=== PATIENT | female | born 1945 | race American Indian/Alaskan Native ===

== ENCOUNTER 2016-04-21 16:23 | Emergency (ER) | payer MEDICARE | END 2016-04-21 16:30 | disposition left against medical advice (07) | LOC: ED 16:23 | DX: M54.2 Cervicalgia (principal); M54.9 Dorsalgia, unspecified; Z53.21 Procedure and treatment not carried out due to patient leaving prior to being seen by health care provider ==

== ENCOUNTER 2016-07-26 08:18 | Emergency (ER) | payer MEDICARE ==
[2016-07-26] MEDS ORDERED: NORCO 5/325 ONE (08:30)
[2016-07-26] MEDS ORDERED: NORCO 5/325 PO ONE (08:36)
[2016-07-26 09:55] LABS: Bilirubin,Urine NEG (Negative); Blood,Urine NEG (Negative); Ketones,Urine NEG (Negative); Leukocyte Esterase,Urine NEG (Negative); Mucus,Urine FEW /HPF; Nitrite,Urine NEG (Negative); Protein,Urine <15 mg/dL mg/dL (Negative); Urobilinogen,Urine < 2.0 mg/dL (<2.0)
[2016-07-26] MEDS ORDERED: ZOFRAN ODT PO ONE (11:20)
[2016-07-26] MEDS ORDERED: TORADOL IM ONE (11:20)
[2016-07-26] MEDS ORDERED: DILAUDID IM ONE (11:20)
--- NOTE | 2016-07-26 11:23 | Emergency Department Report ---
<MARY LUNA A - Last Filed: 07/26/16 12:42> ED Back Pain/Injury HPI - General Chief Complaint: Back Pain/Injury Stated Complaint: RIGHT SIDED PAIN,BACK PAIN Time Seen by Provider: 07/26/16 11:00 Source: patient, family Limitations: No Limitations - History of Present Illness Initial Comments: Patient here complaining or right sided back pain since Tuesday. Patient said pain started after visiting his sister and going up and down stairs a few day. She has a history of arthritis in his spine. Patient states her body is sore all over. Patient states pain increases with movement and walking. She denies any urinary burning frequency or urgency. Denies any abdominal pain. Denies any shortness of breath, chest pain or nausea vomiting. Patient denies any falling or any injury to her back. She was seen by her primary care doctor placed her on hydrocortisone 10 and Flexeril and she said is not helping. Denies any fever or chills. Denies any numbness or tingling to extremities. MD Complaint: back pain Onset/Timin Similar Symptoms Previously: Yes Place: home Radiation: none Severity: severe Severity scale (0 -10): 10 Quality: aching Consistency: constant Improves With: immobilization Worsens With: movement, walking Context: bending, other (increased physical activity) Associated Symptoms: denies: confusion, weakness, chest pain, numbness, difficulty walking, cough, difficulty urinating, diaphoresis, incontinence, fever/chills, constipation, headaches, abdominal pain, loss of appetite, malaise , nausea/vomiting, rash, seizure, shortness of breath, syncope Treatments Prior to Arrival: prescription analgesics - Related Data Home Medications Medication Instructions Recorded Confirmed Last Taken Amlodipine Besylate [Amlodipine 10 mg PO DAILY 05/30/13 07/26/16 07/26/16 Besylate] 10 mg Brimonidine Tartrate [Alphagan P 1 drop OU BID 05/30/13 07/26/16 07/25/16 0.1%] Hydrochlorothiazide [HCTZ] 25 mg PO DAILY 05/30/13 07/26/16 07/26/16 Metoprolol Tartrate [Metoprolol 100 mg PO QDAY 05/30/13 07/26/16 07/26/16 Tartrate] Timolol Maleate [Timolol Maleate 1 drop OU BID 05/30/13 07/26/16 07/25/16 0.25%] Aspirin [Adult Low Dose Aspirin EC] 81 mg PO QDAY 07/26/16 07/26/16 07/25/16 Esomeprazole Magnesium [NexIUM] 40 mg PO QDAY 07/26/16 07/26/16 07/25/16 Fish Oil 1 cap PO QDAY 07/26/16 07/26/16 07/25/16 Flaxseed Oil [Flax Seed Oil] 1 cap PO QDAY 07/26/16 07/26/16 07/25/16 Ibuprofen [Motrin 800 MG tab] 800 mg PO TID PRN 07/26/16 07/26/16 07/25/16 Latanoprost 0.005% [Xalatan 0.005%] 1 drop OS QHS 07/26/16 07/26/16 07/25/16 Rosuvastatin (Nf) [Crestor] 5 mg PO QDAY 07/26/16 07/26/16 07/25/16 Allergies Allergy/AdvReac Type Severity Reaction Status Date / Time No Known Allergies Allergy Unverified 05/30/13 09:05 ED Review of Systems ROS: Stated complaint: RIGHT SIDED PAIN,BACK PAIN Other details as noted in HPI Comment: All other systems reviewed and negative Constitutional: denies: chills, fever Respiratory: no symptoms reported Cardiovascular: denies: chest pain, palpitations, edema, syncope Gastrointestinal: other. denies: abdominal pain, nausea, vomiting, constipation , hematemesis Genitourinary: other. denies: urgency, dysuria, frequency, hematuria Musculoskeletal: back pain, other. denies: arthralgia, myalgia Skin: other Neurological: denies: vertigo, headache, weakness, numbness, paresthesias, confusion, abnormal gait Psychiatric: other. denies: anxiety, depression ED Past Medical Hx - Past Medical History Previous Medical History?: Yes Hx Hypertension: Yes Hx Deep Vein Thrombosis: No Additional medical history: reflux. scolosis - Surgical History Past Surgical History?: Yes Hx Pacemaker: No Hx Internal Defibrillator: No Additional Surgical History: hysterectomy. knot removed from left intestine - Family History Family history: diabetes, hypertension - Social History Smoking Status: Never Smoker Substance Use Type: None - Medications Home Medications: Home Medications Medication Instructions Recorded Confirmed Last Taken Type Amlodipine Besylate [Amlodipine 10 mg PO DAILY 05/30/13 07/26/16 07/26/16 History Besylate] 10 mg Brimonidine Tartrate [Alphagan P 1 drop OU BID 05/30/13 07/26/16 07/25/16 History 0.1%] Hydrochlorothiazide [HCTZ] 25 mg PO DAILY 05/30/13 07/26/16 07/26/16 History Metoprolol Tartrate [Metoprolol 100 mg PO QDAY 05/30/13 07/26/16 07/26/16 History Tartrate] Timolol Maleate [Timolol Maleate 1 drop OU BID 05/30/13 07/26/16 07/25/16 History 0.25%] Aspirin [Adult Low Dose Aspirin EC] 81 mg PO QDAY 07/26/16 07/26/16 07/25/16 History Esomeprazole Magnesium [NexIUM] 40 mg PO QDAY 07/26/16 07/26/16 07/25/16 History Fish Oil 1 cap PO QDAY 07/26/16 07/26/16 07/25/16 History Flaxseed Oil [Flax Seed Oil] 1 cap PO QDAY 07/26/16 07/26/16 07/25/16 History Ibuprofen [Motrin 800 MG tab] 800 mg PO TID PRN 07/26/16 07/26/16 07/25/16 History Latanoprost 0.005% [Xalatan 0.005%] 1 drop OS QHS 07/26/16 07/26/16 07/25/16 History Rosuvastatin (Nf) [Crestor] 5 mg PO QDAY 07/26/16 07/26/16 07/25/16 History ED Physical Exam - General Limitations: No Limitations General appearance: alert, in no apparent distress - Head Head exam: Present: atraumatic, normocephalic, normal inspection - Eye Eye exam: Present: normal appearance, PERRL, EOMI. Absent: periorbital swelling , periorbital tenderness Pupils: Present: normal accommodation - Neck Neck exam: Present: normal inspection, full ROM. Absent: tenderness, meningismus, lymphadenopathy - Respiratory Respiratory exam: Present: normal lung sounds bilaterally. Absent: respiratory distress, chest wall tenderness - Cardiovascular Cardiovascular Exam: Present: regular rate, normal rhythm, normal heart sounds - GI/Abdominal GI/Abdominal exam: Present: soft, normal bowel sounds. Absent: distended, tenderness, guarding, rebound, rigid - Extremities Exam Extremities exam: Present: normal inspection, full ROM, normal capillary refill. Absent: tenderness, pedal edema, joint swelling, calf tenderness - Back Exam Back exam: Present: normal inspection, full ROM, tenderness (positive spasm right lumbar area), muscle spasm. Absent: CVA tenderness (R), CVA tenderness (L ), paraspinal tenderness, vertebral tenderness, rash noted - Expanded Back Exam Expanded Back exam: Absent: saddle anesthesia Back exam: Negative Straight Leg Raising: Left, Right - Neurological Exam Neurological exam: Present: alert, oriented X3, normal gait, reflexes normal. Absent: motor sensory deficit - Expanded Neurological Exam Expanded Neurological exam: Absent: innattentive, memory loss-remote event, memory loss- recent event, ataxia, receptive aphasia, expressive aphasia, total aphasia, tremor, protecting the airway Patient oriented to: Present: person, place, time Speech: Present: fluid speech Cranial nerves: EOM's Intact: Normal, Gag Reflex: Normal, Nystagmus: Normal, Facial Sensation: Normal Cerebellar function: Romberg: Normal Upper motor neuron: Pronator Drift: Normal Sensory exam: Upper Extremity Light Touch: Normal, Upper Extremity Temperature: Normal, UE 2 Point Discrimination: Normal, Lower Extremity Light Touch: Normal, Lower Extremity Temperature: Normal, LE 2 Point Discrimination: Normal Motor strength exam: RUE: 5, LUE: 5, RLE: 5, LLE: 5 DTR: bicep (R): 2+, bicep (L): 2+, tricep (R): 2+, tricep (L): 2+, knee (R): 2+ , knee (L): 2+, ankle (R): 2+, ankle (L): 2+ Best Eye Response (Aleksandr): (4) open spontaneously Best Motor Response (Aleksandr): (6) obeys commands Best Verbal Response (Wellborn): (5) oriented Aleksandr Total: 15 - Psychiatric Psychiatric exam: Present: normal affect, normal mood - Skin Skin exam: Present: warm, dry, intact, normal color. Absent: rash ED Course Vital Signs 07/26/16 07/26/16 07/26/16 08:26 11:49 12:45 Temperature 98.7 F Pulse Rate 80 84 Respiratory 18 18 Rate Blood Pressure 143/102 Blood Pressure 140/94 [Left] O2 Sat by Pulse 100 Oximetry - Reevaluation(s) Reevaluation #1: 07/26/16 12:51 Patient here complaining of right lower back pain. She was treated with Dilaudid 1 mg IM and Zofran 8 mg ODT. He was also given Toradol 60 mg IM. Also given [place] 5/325 mg by mouth in triage area. It did not relieve her pain. 07/26/16 12:52 ED Medical Decision Making - Lab Data Lab Results 07/26/16 Range/Units 09:30 Urine Color Yellow (Yellow) Urine Turbidity Clear (Clear) Urine pH 7.0 (5.0-7.0) Ur Specific [place] 1.005 (1.003-1.030) Urine Protein <15 mg/dl (Negative) mg/dL Urine Glucose (UA) Neg (Negative) mg/dL Urine Ketones Neg (Negative) mg/dL Urine Blood Neg (Negative) Urine Nitrite Neg (Negative) Urine Bilirubin Neg (Negative) Urine Urobilinogen < 2.0 (<2.0) mg/dL Ur Leukocyte Esterase Neg (Negative) Urine WBC (Auto) 1.0 (0.0-6.0) /HPF Urine RBC (Auto) 2.0 (0.0-6.0) /HPF U Epithel Cells (Auto) 5.0 (0-13.0) /HPF Urine Mucus Few /HPF - Medical Decision Making ED course: A short winded acute exacerbation of chronic back pain.Patient here complaining of right lower back pain. She was treated with Dilaudid 1 mg IM and Zofran 8 mg ODT. He was also given Toradol 60 mg IM. Also given [place] 5/ 325 mg by mouth in triage area. It did not relieve her pain. Upon reevaluation patient said the pains better after Dilaudid, Zofran and Toradol. She'll follow up with her orthopedic doctor she'll call today to schedule an appointment. PT has Trenton 10 and Flexeril that was prescribed by her primary care physician so I told her she can continue with that. Discussed with her that urinalysis was negative for any bacterial infection. Patient discharged home with her family in stable condition. Critical care attestation.: If time is entered above; I have spent that time in minutes in the direct care of this critically ill patient, excluding procedure time. ED Disposition Clinical Impression: Acute exacerbation of chronic low back pain Disposition: DISCHARGED TO HOME OR SELFCARE Is pt being admited?: No Does the pt Need Aspirin: No Condition: Stable Instructions: Chronic Back Pain (ED) Additional Instructions: Please follow up with your primary care physician in 2-3 days. Follow-up with orthopedic doctor in 2-3 days. Rest Youcan continue to take Trenton and Flexeril as prescribed by her primary care physician. Do not drive or operate heavy machinery while taking this medication as it'll cause drowsiness. Referrals: Your, Orthopedic doctor [Other] - 2-3 Days PRIMARY CARE, [Primary Care Provider] - 2-3 Days Forms: Accompanied Note, Work/School Release Form(ED) <JOANA HARRISON P - Last Filed: 07/26/16 19:33> ED Medical Decision Making - Medical Decision Making Case discussed with the mid-level. Mid-level adamantly believes patient presented with what seems similar to past episodes of arthritis and did not present with concerning signs for AAA. CT abd/pelvis performed 2016 no comment of AAA. Patient age is concerning for possible AAA with flank pain. Mid-level assessed patient and determined the patient was presenting with concerns of past arthritis.
[2016-07-26 12:46] VITALS: BP 140/94
== END 2016-07-26 13:27 | disposition home or self-care (01) ==
LOC: ED 08:18
DX: M54.5 Low back pain (principal); G89.29 Other chronic pain; I10 Essential (primary) hypertension; K21.9 Gastro-esophageal reflux disease without esophagitis; Z90.710 Acquired absence of both cervix and uterus; Z79.82 Long term (current) use of aspirin
CPT/HCPCS: 81001; 96372; 99283; J1170; J1885; Q0162

== ENCOUNTER 2017-03-01 09:12 | Outpatient (CLI) | payer MEDICARE ==
--- NOTE | 2017-03-01 13:15 | Mammography Report ---
Diagnostic left mammogram and targeted left breast ultrasound. History: Recall. Findings: Spot compression images of the area of interest in the left breast demonstrate no evidence of mass or definite architectural distortion although mild skin retraction persists. No suspicious calcifications are seen. Sonographic evaluation of the subareolar region demonstrates no suspicious findings although a small 5 mm cyst is identified. Impression: No suspicious findings. Minimal skin retraction in the subareolar left breast is a chronic finding. BI-RADS code: 3. Recommendation: 6 month followup mammogram is recommended to ensure stability of this finding.
== END 2017-03-01 09:13 | disposition home or self-care (01) ==
LOC: MAMMO 09:12
PROVIDERS: ATTEND Internal Medicine
DX: N60.02 Solitary cyst of left breast (principal); N64.53 Retraction of nipple
CPT/HCPCS: 76642; G0206

== ENCOUNTER 2018-06-05 09:34 | Outpatient (CLI) | payer MEDICARE ==
[2018-06-05 10:40] LABS: Basophils # (Auto) 0.1 K/mm3 (0.0-0.1); Basophils % (Auto) 0.9 % (0.0-1.8); Eosinophils # (Auto) 0.2 K/mm3 (0.0-0.4); Eosinophils % (Auto) 2.9 % (0.0-4.3); Hematocrit 40.8 % (30.3-42.9); Hemoglobin 13.5 gm/dl (10.1-14.3); Lymphocytes # (Auto) 2.6 K/mm3 (1.2-5.4); Lymphocytes % (Auto) 33.9 % (13.4-35.0); Mean Corpuscular HGB Conc 33 % (30-34); Mean Corpuscular Volume 79 fl (79-97); Monocytes # (Auto) 0.7 K/mm3 (0.0-0.8); Monocytes % (Auto) 9.1 % (0.0-7.3); Red Blood Count 5.16 M/mm3 (3.65-5.03); Red Cell Distribution Width 14.4 % (13.2-15.2)
[2018-06-05 11:01] LABS: BUN/Creatinine Ratio 26; Blood Urea Nitrogen 13 mg/dL (7-17); Hemolysis Index 7; LDL Cholesterol,Direct 78 mg/dL (50-130)
[2018-06-05 12:04] LABS: Chol/HDL Ratio 2.14 %; HDL Cholesterol 67 mg/dL (40-59)
[2018-06-05 12:30] LABS: Platelet Count 164 K/mm3 (140-440)
== END 2018-06-05 09:35 | disposition home or self-care (01) ==
LOC: LAB 09:34
PROVIDERS: ATTEND Internal Medicine
DX: E78.5 Hyperlipidemia, unspecified (principal); E66.09 Other obesity due to excess calories; I10 Essential (primary) hypertension; K57.30 Diverticulosis of large intestine without perforation or abscess without bleeding; K21.9 Gastro-esophageal reflux disease without esophagitis
CPT/HCPCS: 36415; 80048; 80061; 82306; 82607; 85025

== ENCOUNTER 2018-11-13 10:21 | Outpatient (CLI) | payer MEDICARE ==
[2018-11-13 13:47] LABS: Alanine Aminotransferase 14 units/L (7-56); Albumin 4.4 g/dL (3.9-5); BUN/Creatinine Ratio 23; Blood Urea Nitrogen 9 mg/dL (7-17); Calcium 9.7 mg/dL (8.4-10.2); Chol/HDL Ratio 2.55 %; HDL Cholesterol 69 mg/dL (40-59); Hemolysis Index 6; LDL Cholesterol,Direct 100 mg/dL (50-130)
== END 2018-11-13 10:22 | disposition home or self-care (01) ==
LOC: LAB 10:21
PROVIDERS: ATTEND Internal Medicine
DX: Z13.1 Encounter for screening for diabetes mellitus (principal); E78.00 Pure hypercholesterolemia, unspecified; I10 Essential (primary) hypertension; K21.9 Gastro-esophageal reflux disease without esophagitis; R79.89 Other specified abnormal findings of blood chemistry; Z90.710 Acquired absence of both cervix and uterus
CPT/HCPCS: 36415; 80053; 80061; 83036; 84443; 87806

== ENCOUNTER 2019-02-26 10:27 | Outpatient (CLI) | payer MEDICARE ==
--- NOTE | 2019-02-26 13:23 | Mammography Report ---
DIGITAL SCREENING MAMMOGRAM WITH CAD, 02/26/2019 INDICATION: Routine screening mammography. TECHNIQUE: Digital bilateral 2D mammography was obtained in the craniocaudal and mediolateral obliq ue projections. This examination was interpreted with the benefit of Computer-Aided Detection analysi s. COMPARISON: 02/20/2018 FINDINGS: Breast Density: There are scattered areas of fibroglandular density. There is no evidence of dominant mass, suspicious calcifications or architectural distortion in eithe r breast. IMPRESSION: No mammographic evidence of malignancy. Follow up recommendation: Routine yearly BI-RADS Category 1: Negative. A "normal" or negative report should not discourage follow up or biopsy of a clinically significant f inding. A written summary of these findings will be mailed to the patient. The patient will be entered into a mammography reporting system which will generate a reminder letter for the patient's next appointmen t at the appropriate interval. The [employer] recommends yearly mammograms starting at age 40 and continuing as l mariah as a woman is in good health. Breast MRI is recommended for women with an approximate 20-25% or greater lifetime risk of breast cancer, including women with a strong family history of breast or ova jun cancer or who have been treated for Hodgkin's disease. Signer Name: Luis A Kirby MD Signed: 02/26/2019 1:19 PM Workstation Name: [id number]
== END 2019-02-26 10:28 | disposition home or self-care (01) ==
LOC: MAMMO 10:27
PROVIDERS: ATTEND Internal Medicine
DX: Z12.31 Encounter for screening mammogram for malignant neoplasm of breast (principal)
CPT/HCPCS: 77067

== ENCOUNTER 2019-04-04 09:10 | Outpatient (CLI) | payer MEDICARE ==
[2019-04-04 12:41] LABS: Chol/HDL Ratio 2.22 %
== END 2019-04-04 09:11 | disposition home or self-care (01) ==
LOC: LAB 09:10
PROVIDERS: ATTEND Internal Medicine
DX: E78.5 Hyperlipidemia, unspecified (principal)
CPT/HCPCS: 36415; 80061

== ENCOUNTER 2020-02-06 06:04 | Emergency (ER) | payer MEDICARE ==
[2020-02-06 06:52] LABS: Basophils # (Auto) 0.1 K/mm3 (0.0-0.1); Basophils % (Auto) 0.7 % (0.0-1.8); Eosinophils # (Auto) 0.2 K/mm3 (0.0-0.4); Eosinophils % (Auto) 2.4 % (0.0-4.3); Hematocrit 40.5 % (30.3-42.9); Hemoglobin 13.4 gm/dl (10.1-14.3); Lymphocytes # (Auto) 3.1 K/mm3 (1.2-5.4); Lymphocytes % (Auto) 36.2 % (13.4-35.0); Mean Corpuscular HGB Conc 33 % (30-34); Mean Corpuscular Volume 80 fl (79-97); Monocytes # (Auto) 0.5 K/mm3 (0.0-0.8); Monocytes % (Auto) 6.2 % (0.0-7.3); Red Blood Count 5.05 M/mm3 (3.65-5.03); Red Cell Distribution Width 14.2 % (13.2-15.2)
[2020-02-06 06:56] LABS: Platelet Count 159 K/mm3 (140-440)
[2020-02-06 07:07] LABS: Blood Urea Nitrogen 11 mg/dL (7-17); Calcium 9.3 mg/dL (8.4-10.2); Hemolysis Index 6
[2020-02-06 07:15] LABS: BUN/Creatinine Ratio 22
[2020-02-06] MEDS ORDERED: ACETAMINOPHEN 500 MG TAB PO ONE (08:28)
[2020-02-06] MEDS ORDERED: ALUM-MAG HYDROXIDE-SIMETHICONE 200-200-20MG/5ML ORAL LIQD 30 ML PO ONE (08:28)
[2020-02-06 10:33] VITALS: BP 125/98
--- NOTE | 2020-02-06 10:35 | Cat Scan Report ---
CT ABDOMEN AND PELVIS WITHOUT CONTRAST INDICATION / CLINICAL INFORMATION: abdominal pain diarrhea. TECHNIQUE: Axial CT images were obtained through the abdomen and pelvis without IV contrast. All CT scans at this location are performed using CT dose reduction for ALARA by means of automated exposure control. COMPARISON: None available FINDINGS: LOWER CHEST: Bochdalek hernia. Visualized lung bases are clear. LIVER: Unremarkable GALLBLADDER/BILIARY TREE: Unremarkable PANCREAS: Unremarkable SPLEEN: Unremarkable ADRENALS: Unremarkable KIDNEYS / URETER: Unremarkable URINARY BLADDER: Bladder is decompressed, limiting evaluation. REPRODUCTIVE ORGANS: Uterus is absent or atrophic. STOMACH / SMALL BOWEL: Stomach and small bowel are normal in caliber. No evidence of bowel inflammati on. COLON: Colonic diverticulosis without CT evidence of diverticulitis. The appendix is nonvisualized. LYMPH NODES: No significant adenopathy. VASCULATURE: Mild atherosclerotic calcification without acute abnormality. OTHER: No free air, free fluid, or focal fluid collection is identified. SKELETAL SYSTEM: Multilevel thoracal lumbar spondylosis and S-shaped scoliotic curvature of the spine . No acute process identified. IMPRESSION: 1. No acute process of the abdomen or pelvis. 2. Colonic diverticulosis without CT evidence of diverticulitis. 3. Other chronic and incidental findings as above. Signer Name: Chalino Angeles MD Signed: 02/06/2020 10:30 AM Workstation Name: [id number]
--- NOTE | 2020-02-06 10:48 | Emergency Department Report ---
ED GI Bleed HPI - General Chief complaint: GI Bleed Stated complaint: RECTAL BLEED Time Seen by Provider: 02/06/20 08:23 Source: patient Mode of arrival: Ambulatory Limitations: No Limitations - History of Present Illness Initial comments: This is a 74-year-old female with history of hypertension and reflux who presents with bright red blood per rectum over the last 3 days. Patient also has concomitant brown stool. Patient also has mild crampy abdominal pain. No radiation. Gradual onset today. Intermittent. No history of hemorrhoids. Treating nurse was able to view patient's stool. Treatment nurse informed me that she saw brown stool mixed with bright red blood -: Gradual, days(s) (3) Location: diffuse (Diffuse abdominal pain) Radiation: none Severity scale (0 -10): 6 Quality: cramping Consistency: intermittent Improves with: none Worsens with: none Context: other (Patient takes daily aspirin) Associated Symptoms: abdominal pain - Related Data Home Medications Medication Instructions Recorded Confirmed Last Taken Amlodipine Besylate 10 mg PO DAILY 05/30/13 07/26/16 07/26/16 10 mg Brimonidine Tartrate [Alphagan P 1 drop OU BID 05/30/13 07/26/16 07/25/16 0.1%] Metoprolol Tartrate 100 mg PO QDAY 05/30/13 07/26/16 07/26/16 hydroCHLOROthiazide [HCTZ] 25 mg PO DAILY 05/30/13 07/26/16 07/26/16 timoloL maleate [Timolol Maleate 1 drop OU BID 05/30/13 07/26/16 07/25/16 0.25%] Aspirin [Adult Low Dose Aspirin EC] 81 mg PO QDAY 07/26/16 07/26/16 07/25/16 Esomeprazole Magnesium [NexIUM] 40 mg PO QDAY 07/26/16 07/26/16 07/25/16 Fish Oil 1 cap PO QDAY 07/26/16 07/26/16 07/25/16 Flaxseed Oil [Flax Seed Oil] 1 cap PO QDAY 07/26/16 07/26/16 07/25/16 Ibuprofen [Motrin 800 MG tab] 800 mg PO TID PRN 07/26/16 07/26/16 07/25/16 Latanoprost 0.005% 1 drop OS QHS 07/26/16 07/26/16 07/25/16 Rosuvastatin (Nf) [Crestor] 5 mg PO QDAY 07/26/16 07/26/16 07/25/16 Previous Rx's Medication Instructions Recorded Last Taken Type HYDROcodone/APAP 5-325 [[place] 1 each PO Q6HR PRN #10 tablet 02/06/20 Unknown Rx 5/325] Ondansetron [Zofran Odt] 4 mg PO Q8HR PRN #10 tab.rapdis 02/06/20 Unknown Rx Phenyleph/Mineral Oil/Petrolat 1 applic RC TID 7 Days #1 container 02/06/20 Unknown Rx [Preparation H Ointment] Allergies Allergy/AdvReac Type Severity Reaction Status Date / Time No Known Allergies Allergy Unverified 02/06/20 10:41 ED Review of Systems ROS: Stated complaint: RECTAL BLEED Other details as noted in HPI Comment: All other systems reviewed and negative Constitutional: denies: fever, malaise Respiratory: denies: cough, shortness of breath Gastrointestinal: abdominal pain. denies: nausea, diarrhea, hematemesis, melena, hematochezia Skin: denies: rash, lesions ED Past Medical Hx - Past Medical History Previous Medical History?: Yes Hx Hypertension: Yes Hx Deep Vein Thrombosis: No Additional medical history: reflux. scolosis - Surgical History Past Surgical History?: Yes Hx Pacemaker: No Hx Internal Defibrillator: No Additional Surgical History: hysterectomy. knot removed from left intestine - Social History Smoking Status: Never Smoker Substance Use Type: Alcohol - Medications Home Medications: Home Medications Medication Instructions Recorded Confirmed Last Taken Type Amlodipine Besylate 10 mg PO DAILY 05/30/13 07/26/16 07/26/16 History 10 mg Brimonidine Tartrate [Alphagan P 1 drop OU BID 05/30/13 07/26/16 07/25/16 History 0.1%] Metoprolol Tartrate 100 mg PO QDAY 05/30/13 07/26/16 07/26/16 History hydroCHLOROthiazide [HCTZ] 25 mg PO DAILY 05/30/13 07/26/16 07/26/16 History timoloL maleate [Timolol Maleate 1 drop OU BID 05/30/13 07/26/16 07/25/16 Hi story 0.25%] Aspirin [Adult Low Dose Aspirin EC] 81 mg PO QDAY 07/26/16 07/26/16 07/25/16 Hi story Esomeprazole Magnesium [NexIUM] 40 mg PO QDAY 07/26/16 07/26/16 07/25/16 History Fish Oil 1 cap PO QDAY 07/26/16 07/26/16 07/25/16 History Flaxseed Oil [Flax Seed Oil] 1 cap PO QDAY 07/26/16 07/26/16 07/25/16 History Ibuprofen [Motrin 800 MG tab] 800 mg PO TID PRN 07/26/16 07/26/16 07/25/16 History Latanoprost 0.005% 1 drop OS QHS 07/26/16 07/26/16 07/25/16 History Rosuvastatin (Nf) [Crestor] 5 mg PO QDAY 07/26/16 07/26/16 07/25/16 History HYDROcodone/APAP 5-325 [[place] 1 each PO Q6HR PRN #10 tablet 02/06/20 Unknown Rx 5/325] Ondansetron [Zofran Odt] 4 mg PO Q8HR PRN #10 tab.rapdis 02/06/20 Unknown Rx Phenyleph/Mineral Oil/Petrolat 1 applic RC TID 7 Days #1 container 02/06/20 Unknown Rx [Preparation H Ointment] ED Physical Exam - General Limitations: No Limitations General appearance: alert, in no apparent distress - Head Head exam: Present: atraumatic, normocephalic - Eye Eye exam: Present: normal appearance - ENT ENT exam: Present: mucous membranes moist - Neck Neck exam: Present: normal inspection, full ROM - Respiratory Respiratory exam: Present: normal lung sounds bilaterally. Absent: respiratory distress, wheezes, rales, rhonchi - Cardiovascular Cardiovascular Exam: Present: regular rate, normal rhythm, normal heart sounds. Absent: systolic murmur, diastolic murmur, rubs, gallop - GI/Abdominal GI/Abdominal exam: Present: soft, normal bowel sounds. Absent: distended, tenderness, guarding - Rectal Rectal exam: Present: hemorrhoids (Several large nonthrombosed hemorrhoids) - Extremities Exam Extremities exam: Present: normal inspection - Neurological Exam Neurological exam: Present: alert, oriented X3 - Psychiatric Psychiatric exam: Present: normal affect, normal mood - Skin Skin exam: Present: warm, dry, intact, normal color. Absent: rash ED Course Vital Signs 02/06/20 02/06/20 02/06/20 08:32 08:45 09:45 Pulse Rate 103 H 103 H 113 H Respiratory 22 20 19 Rate Blood Pressure 132/92 102/74 Blood Pressure 152/102 [Left] O2 Sat by Pulse 98 99 100 Oximetry 02/06/20 10:30 Pulse Rate 100 H Respiratory 12 Rate Blood Pressure 125/98 Blood Pressure [Left] O2 Sat by Pulse Oximetry ED Medical Decision Making - Lab Data Result diagrams: 02/06/20 06:28 02/06/20 06:28 Laboratory Results - last 24 hr 02/06/20 02/06/20 06:28 06:28 WBC 8.5 RBC 5.05 H Hgb 13.4 Hct 40.5 MCV 80 MCH 27 L MCHC 33 RDW 14.2 Plt Count 159 Lymph % (Auto) 36.2 H Clark % (Auto) 6.2 Eos % (Auto) 2.4 Baso % (Auto) 0.7 Lymph # (Auto) 3.1 Clark # (Auto) 0.5 Eos # (Auto) 0.2 Baso # (Auto) 0.1 Seg Neutrophils % 54.5 Seg Neutrophils # 4.7 Sodium 140 Potassium 3.5 L Chloride 99.9 Carbon Dioxide 28 Anion Gap 16 BUN 11 Creatinine 0.5 L Estimated GFR > 60 BUN/Creatinine Ratio 22 Glucose 150 H Calcium 9.3 - Radiology Data Radiology results: report reviewed CT abdomen pelvis without contrast: Radiology impression: Colonic diverticulosis without CT evidence of diverticulitis, mild atherosclerotic calcification of va sculature, spondylosis and scoliosis of the spine, ultimately no acute process of the abdomen or pelvis - Medical Decision Making 1. Rectal bleeding attributed to visualize external rectal hemorrhoids. Patient prescribed hemorrhoidal cream. Patient encouraged to start aspirin use for the next 7 days. No anemia. 2. Nonspecific mild abdominal pain: Suspect mild dyspepsia versus early viral syndrome vs PUD. No evidence of acute emergent condition on clinical exam. No acute findings on CT abdomen pelvis. No tenderness on abdomen. No fever. No leukocytosis. Patient given bland diet instructions. She has a personal bellows tester. I encouraged GI and PCP f/u CBC chemistry within normal limits. Patient is appropriate for discharge home. Critical care attestation.: If time is entered above; I have spent that time in minutes in the direct care of this critically ill patient, excluding procedure time. ED Disposition Clinical Impression: Rectal bleeding, Hemorrhoids, Acute abdominal pain Disposition: TO HOME OR SELFCARE Is pt being admited?: No Does the pt Need Aspirin: No Condition: Stable Instructions: Rectal Bleeding, [id number], Hemorrhoids, [id number], Abdominal Pain, Adult, Peach Diet Prescriptions: HYDROcodone/APAP 5-325 [[place] 5/325] 1 each PO Q6HR PRN #10 tablet PRN Reason: Pain Phenyleph/Mineral Oil/Petrolat [Preparation H Ointment] 1 applic RC TID 7 Days #1 container Ondansetron [Zofran Odt] 4 mg PO Q8HR PRN #10 tab.rapdis PRN Reason: Nausea Referrals: YASHIRA SMALLS MD [Staff Physician] - 3-5 Days
[2020-02-06] MEDS ORDERED: HYDROcodone/ACETAMINOPHEN 5-325 MG TAB PO ONE (11:00)
[2020-02-06] MEDS ORDERED: ONDANSETRON 4 MG ODT TAB PO ONE (11:00)
== END 2020-02-06 12:05 | disposition home or self-care (01) ==
LOC: ED 06:04
DX: K62.5 Hemorrhage of anus and rectum (principal); K64.9 Unspecified hemorrhoids; R10.9 Unspecified abdominal pain; I10 Essential (primary) hypertension; K21.9 Gastro-esophageal reflux disease without esophagitis; Z90.710 Acquired absence of both cervix and uterus; Z79.899 Other long term (current) drug therapy; Z98.890 Other specified postprocedural states
CPT/HCPCS: 36415; 74176; 80048; 85025; Q0162

== ENCOUNTER 2020-02-28 10:15 | Outpatient (CLI) | payer MEDICARE ==
--- NOTE | 2020-02-28 12:03 | Mammography Report ---
DIGITAL SCREENING MAMMOGRAM WITH CAD, 02/28/2020 CLINICAL INFORMATION / INDICATION: Routine screening mammography. ROUTINE TECHNIQUE: Digital bilateral 2D mammography was obtained in the craniocaudal and mediolateral obliqu e projections. This examination was interpreted with the benefit of Computer-Aided Detection analysis . COMPARISON: 02/20/2018 and 02/26/2019 FINDINGS: Breast Density: There are scattered areas of fibroglandular density. No dominant mass, suspicious calcifications, or architectural distortion in either breast. There is a stable nodule on the right IMPRESSION: No mammographic evidence of malignancy. Follow up recommendation: Routine yearly BI-RADS Category 2: Benign. A "normal" or negative report should not discourage follow up or biopsy of a clinically significant f inding. A written summary of these findings will be mailed to the patient. The patient will be entered into a mammography reporting system which will generate a reminder letter for the patient's next appointmen t at the appropriate interval. The [employer] recommends yearly mammograms starting at age 40 and continuing as l mariah as a woman is in good health. Breast MRI is recommended for women with an approximate 20-25% or greater lifetime risk of breast cancer, including women with a strong family history of breast or ova jun cancer or who have been treated for Hodgkin's disease. Signer Name: Eligio Burnham MD Signed: 02/28/2020 11:58 AM Workstation Name: [id number]
== END 2020-02-28 10:16 | disposition home or self-care (01) ==
LOC: MAMMO 10:15
PROVIDERS: ATTEND Internal Medicine
DX: Z12.31 Encounter for screening mammogram for malignant neoplasm of breast (principal)
CPT/HCPCS: 77067

== ENCOUNTER 2020-03-13 09:45 | Outpatient (CLI) | payer MEDICARE ==
--- NOTE | 2020-03-13 14:29 | Fluoroscopy Report ---
AIR CONTRAST BARIUM ENEMA HISTORY: Colonic polyps. Incomplete colonoscopy COMPARISON: None. FINDINGS: A rectal tube was secured by balloon inflation for retrograde administration of barium contrast agent . Air contrast was added. The colon is normal caliber and mucosal pattern throughout. There are scatt ered diverticula throughout the colon which is most pronounced in the sigmoid region. There is no dulce dence for colonic mass or apple core lesion. The right hemicolon is unremarkable. No obvious polyps a re detected. There is reflux into a normal-appearing terminal ileum. Appendectomy changes were noted by the patient. IMPRESSION: No suspicious colonic lesion is identified. Diverticulosis of the colon. Signer Name: Amadeo Weir Jr, MD Signed: 03/13/2020 2:24 PM Workstation Name: [id number]
== END 2020-03-13 09:46 | disposition home or self-care (01) ==
LOC: FLUORO 09:45
PROVIDERS: ATTEND Internal Medicine Gastroenterology
DX: K57.30 Diverticulosis of large intestine without perforation or abscess without bleeding (principal); Z86.010 Personal history of colon polyps
CPT/HCPCS: 74280

== ENCOUNTER 2021-03-05 10:41 | Outpatient (CLI) | payer MEDICARE ==
--- NOTE | 2021-03-06 17:00 | Mammography Report ---
DIGITAL SCREENING MAMMOGRAM WITH TOMOSYNTHESIS WITH CAD, 03/05/2021 CLINICAL INFORMATION / INDICATION: Routine Screening Mammography. TECHNIQUE: Digital bilateral 2D and 3D mammography with tomosynthesis was obtained in the craniocaud al and mediolateral oblique projections. Computer-Aided Detection (CAD) analysis was used for interp retation of this study. COMPARISON: 02/28/2020, 02/26/2019 FINDINGS: Breast Density: There are scattered areas of fibroglandular density. No dominant mass, suspicious calcifications, or architectural distortion in either breast. Stable fernanda ateral nodularity. No interval change. IMPRESSION: No mammographic evidence of malignancy. Follow up recommendation: Routine yearly BI-RADS Category 2: Benign. A "normal" or negative report should not discourage follow up or biopsy of a clinically significant f inding. A written summary of these findings will be mailed to the patient. The patient will be entered into a mammography reporting system which will generate a reminder letter for the patient's next appointmen t at the appropriate interval. The [employer] recommends yearly mammograms starting at age 40 and continuing as l mariah as a woman is in good health. Breast MRI is recommended for women with an approximate 20-25% or greater lifetime risk of breast cancer, including women with a strong family history of breast or ova jun cancer or who have been treated for Hodgkin's disease. Signer Name: Ping Javier MD Signed: 03/06/2021 4:56 PM Workstation Name: [id number]
== END 2021-03-05 10:42 | disposition home or self-care (01) ==
LOC: SPVWC 10:41
PROVIDERS: ATTEND Internal Medicine
DX: Z12.31 Encounter for screening mammogram for malignant neoplasm of breast (principal)
CPT/HCPCS: 77063; 77067